=== PATIENT | female | born 1930 | race Caucasian/White ===

== ENCOUNTER → 2017-07-31 | Outpatient (CLI) | payer OTHER ==
[~2017-07-31] MED LIST: GADOBUTROL 7.5 MMOL/7.5 ML VIAL ONE; MULT-658 PO; OMEP20CA9 PO; SOTA80TA18 PO
== END | disposition home or self-care (01) ==
LOC: CFH 14:48
PROVIDERS: ATTEND Registered Nurse
DX: I67.82 Cerebral ischemia (principal); R90.82 White matter disease, unspecified; G31.89 Other specified degenerative diseases of nervous system
CPT/HCPCS: 70553; A9585

== ENCOUNTER 2018-11-15 13:39 | Emergency (ER) | payer MEDICARE, OTHER ==
[~2018-11-15] VITALS: Ht 162.6 cm; Wt 55.7 kg
[~2018-11-15 13:39] MED LIST changes: -GADOBUTROL 7.5 MMOL/7.5 ML VIAL ONE
[2018-11-15 14:25] LABS: BASOPHILS # (AUTO) 0.04 x10^3/uL (0-0.1); BASOPHILS % (AUTO) 0 % (0-1); EOSINOPHILS # (AUTO) 0.09 x10^3/uL (0-0.4); EOSINOPHILS % (AUTO) 1 % (1-7); LYMPHOCYTES # (AUTO) 1.15 x10^3/uL (1-3.4); LYMPHOCYTES % (AUTO) 14 % (22-44); MD NO; MEAN CORPUSCULAR HEMOGLOBIN 30.2 pg (27.0-34.8); MEAN CORPUSCULAR HGB CONC 33.3 g/dL (32.4-35.8); MEAN CORPUSCULAR VOLUME 90.9 fL (80-100); MEAN PLATELET VOLUME 8.2 fL (7.4-10.4); MONOCYTES # (AUTO) 0.45 x10^3/uL (0.2-0.8); MONOCYTES % (AUTO) 6 % (2-9); NEUTROPHILS # (AUTO) 6.29 x10^3/uL (1.8-6.8); NEUTROPHILS % (AUTO) 79 % (42-75); PLATELET COUNT 245 x10^3/uL (130-400); RED BLOOD COUNT 3.98 x10^6/uL (3.82-5.3); RED CELL DISTRIBUTION WIDTH 15.3 % (9.6-15.2)
--- NOTE | 2018-11-15 14:25 | NUR ---
PT STATES ASX AT THIS TIME. CP SUDDEN ONSET THIS AM AT 1030 WHILE DOING STRETCHING EXERCISES. PT REFUSED AMBULANCE ON SCENE OF HER CARE HOME HOME BUT DTR BROUGHT HER IN TO BE EVALUATED. PT UNHAPPY TO BE HERE BUT COOPERATIVE WITH CARE. PT PLACED ON HEART MONITOR, PULSE OX, BP CUFF. CALL LIGHT WITHIN REACH, WARM BLANKET PROVIDED, DTR AT BS.
[2018-11-15 14:32] LABS: ALANINE AMINOTRANSFERASE 14 U/L (12-78); ALBUMIN 3.1 g/dL (3.4-5.0); ANION GAP 6 mmol/L (5-15); CALCIUM 9.9 mg/dL (8.5-10.1); CHLORIDE 109 mmol/L (98-107)
[2018-11-15 14:37] LABS: ALKALINE PHOSPHATASE 78 U/L (45-117); BILIRUBIN,TOTAL 0.3 mg/dL (0.2-1.0); TOTAL PROTEIN 6.4 g/dL (6.4-8.2); TROPONIN I < 0.015 ng/mL (0.000-0.045)
--- NOTE | 2018-11-15 14:50 | NUR ---
ALL RESULTS BACK, PT FOR RECHECK.
[2018-11-15 15:06] VITALS: BP 119/58
== END 2018-11-15 15:09 | disposition home or self-care (01) ==
LOC: ED 15:00
DX: R07.89 Other chest pain (principal); R42 Dizziness and giddiness; Z90.710 Acquired absence of both cervix and uterus
CPT/HCPCS: 36415; 71045; 80053; 84484; 85025; 93005; 99284